=== PATIENT | female | born 1940 | race Caucasian/White ===

== ENCOUNTER → 2019-03-07 | Outpatient (CLI) | payer MEDICARE, OTHER, MEDICAID ==
[2014-12-21 15:00] VITALS: BP 132/81
[~2019-03-07] MED LIST: ALBU2.5V8 IH; ASPI-482 PO; CALC300T5 PO; CALC500T54 PO; CITA40TA12 PO; CLOP75TA57 PO; LIPITOR80 MG PO; LOSA50TA86 PO; METO-239 PO; NICO1PAT25 TD; NITR0.4T24 SL; PRED50TA PO; RANI150C PO; [UNRECOGNIZED DRUG - OTHER]; antidepressant; blood pressure med
--- NOTE | 2019-03-07 16:22 | RAD ---
CT of the chest without contrast 03/07/2019 INDICATION: COPD COMPARISON STUDY: CT angiography chest December 21, 2014 TECHNIQUE: Multidetector CT imaging of the chest performed without contrast. FINDINGS: Heart size is normal. No pericardial effusion is seen. Extensive coronary calcification noted. There is a moderate to large hiatal hernia. Scattered small mediastinal lymph nodes are similar to comparison study. Diffuse emphysematous changes are similar to comparison study. No pneumothorax, pleural effusion, or acute appearing infiltrate is seen. Known pulmonary masses are identified. Upper abdomen demonstrates no acute abnormalities. No acute osseous changes are appreciated. IMPRESSION: 1. Changes of COPD 2. Moderate to large hiatal hernia 3. No evidence of acute pulmonary process or acute change from prior study CT DOSING PQRS STATEMENT: One or more of the following individualized dose reduction techniques were utilized for this examination: 1. Automated exposure control 2. Adjustment of the mA and/or kV according to patient size 3. Use of iterative reconstruction technique Electronically signed by: Bakari Birmingham MD (03/07/2019 4:19 PM) [facility]
== END | disposition home or self-care (01) ==
LOC: CT 10:41
PROVIDERS: ATTEND Internal Medicine Pulmonary Disease
DX: J43.9 Emphysema, unspecified (principal); R91.8 Other nonspecific abnormal finding of lung field; K44.9 Diaphragmatic hernia without obstruction or gangrene; I25.10 Atherosclerotic heart disease of native coronary artery without angina pectoris
CPT/HCPCS: 71250

== ENCOUNTER → 2019-06-12 | Outpatient (CLI) | payer MEDICARE, OTHER, MEDICAID ==
[2014-12-21 15:00] VITALS: BP 132/81
--- NOTE | 2019-06-12 13:00 | RAD ---
MR#: [id number] Date of Study: 06/12/2019 Ordering Physician: MAGUE TSE, Referring Physician: MAGUE TSE, Tech: Leah Gonzalez RVT,MS APPROVED REPORT Patient Location: OUT-PATIENT Indications Claudication: PAD On the right normal triphasic waveforms are noted from the common femoral artery to the popliteal seg ment. At the level of the popliteal artery below the knee velocities are slightly diminished suggesti ve of moderate disease. There is three-vessel runoff below the knee. On the left probable moderate stenosis involving the common femoral artery with normal triphasic wave forms to the popliteal artery. Again there are lower than expected velocities below the knee but most ly triphasic and biphasic waveforms without any critical stenosis. Risk Factors Hypertension Smoking VELOCITY AND DOPPLER WAVEFORM ANALYSIS RIGHT cm/secWaveformSeverity LEFT cm/secWaveform Severity pCFA 133.3TriphasicpCFA 193.2Triphasic Prof Fem Art. 90.0TriphasicProf Fem Art. 56.0Triphasic Fem Art Prox. 66.8TriphasicFem Art Prox. 68.9Triphasic Fem Art Mid. 97.6TriphasicFem Art Mid. 79.2Triphasic Fem Art Dist. 53.1TriphasicFem Art Dist. 37.6Triphasic Pop Art(Fossa) 31.5TriphasicPop Art(AK) 36.2Triphasic THREAD DRESSER Prox. 28.6BiphasicPTA Prox. 38.8Triphasic THREAD DRESSER Dist. 34.0BiphasicPTA Dist. 41.6Biphasic Per Art Prox. 47.0TriphasicPer Art Prox. 43.4Biphasic MORGAN Prox. 54.2TriphasicATA Prox. 70.5Biphasic DPA 29BiphasicDPA 53Biphasic Critical Notification Critical Value: No <Conclusion> 1. Probable moderate diffuse disease below the knee but otherwise no critical stenosis is identified. Signed by : Mague Tse, Electronically Approved : 06/12/2019 13:00:03
--- NOTE | 2019-06-12 13:06 | RAD ---
MR#: [id number] Date of Study: 06/12/2019 Ordering Physician: MAGUE TSE, Referring Physician: MAGUE TSE, Tech: Leah Gonzalez RVT,[facility] APPROVED REPORT Patient Location: OUT-PATIENT Laterality:Bilateral Indications Dizziness and Vertigo Grayscale images are notable for bilateral carotid bulb plaques. Based on spectral waveforms, color D oppler and velocities no significant stenosis is noted in the bilateral internal and external carotid vessels. Overall 0 to less than 50% stenosis based on velocity criteria. Bilateral vertebral velocit ies are antegrade. Normal ICA to CCA ratios bilaterally. Risk Factors Hypertension: PAD Smoking Doppler Spectral Velocity Analysis Right Left pCCA 81/20 cm/spCCA 68/21 cm/s mCCA 73/19 cm/smCCA 75/23 cm/s dCCA 49/15 cm/sdCCA 60/20 cm/s Bulb 43/13 cm/sBulb ECA 89/24 cm/sECA 108/22 cm/s pICA 55/16 cm/spICA 58/23 cm/s Chapo 67/24 cm/smICA 52/20 cm/s dICA 53/21 cm/sdICA 72/26 cm/s Vert. 33/10 cm/sVert. 45/16 cm/s ICA/CCA 0.83ICA/CCA 1.06 Critical Notification Critical Value: No <Conclusion> 1. No significant carotid occlusive disease bilaterally. Signed by : Mague Tse, Electronically Approved : 06/12/2019 13:05:36
== END | disposition home or self-care (01) ==
LOC: US 08:44
PROVIDERS: ATTEND Internal Medicine Cardiovascular Disease
DX: I73.9 Peripheral vascular disease, unspecified (principal); I10 Essential (primary) hypertension
CPT/HCPCS: 93880; 93925

== ENCOUNTER → 2020-01-23 | Outpatient (CLI) | payer MEDICARE, OTHER, MEDICAID ==
[2014-12-21 15:00] VITALS: BP 132/81
--- NOTE | 2020-01-23 10:21 | CARD ---
MR#: [id number] Date of Study: 01/23/2020 Ordering Physician: MAGUE SINGH, Referring Physician: MAGUE SINGH, Tech: Joi Apodaca APPROVED REPORT EXAM: Two-dimensional and M-mode echocardiogram with Doppler and color Doppler. Other Information Quality : Average INDICATION Hypertension/HCVD 2D DIMENSIONS RVDd2.2 (2.9-3.5cm)Left Atrium(2D)2.3 (1.6-4.0cm) IVSd1.0 (0.7-1.1cm)Aortic Root(2D)3.1 (2.0-3.7cm) LVDd4.2 (3.9-5.9cm)LVOT Diameter1.9 (1.8-2.4cm) PWd0.8 (0.7-1.1cm)LVDs3.3 (2.5-4.0cm) FS (%) 21.7 %SV34.6 ml LVEF(%)44.3 (>50%) Aortic Valve AoV Peak Rickey.151.0cm/sAoV VTI29.5cm AO Peak GR.9.1mmHgLVOT Peak Rickey.121.8cm/s LVOT VTI 22.73cmAO Mean GR.4mmHg PINKY (VMAX)2.73xq8BTQ (VTI)2.24cm2 Mitral Valve MV E Yugnsjrx02.2cm/sMV E Peak Gr.3mmHg MV DECEL TIGH758qgPB A Qnmrybna05.8cm/s E/A Ratio0.8 Pulmonary Valve PV Peak Jpbfrukp13.6cm/sPV Peak Grad.3mmHg Tricuspid Valve TR P. Hbhotagz691yr/sRAP YVHGZCYV0rjIl TR Peak Gr.23ehDbKMIQ73bxOd Pulmonary Vein S1 Wdmtfzhn29.7cm/sD2 Pihirohx01.2cm/s LEFT VENTRICLE The left ventricle is normal size. There is normal left ventricular wall thickness. The left ventricu lar systolic function is normal. The Ejection Fraction is 55-60%. There is normal LV segmental wall m otion. Transmitral Doppler flow pattern is Grade I-abnormal relaxation pattern. RIGHT VENTRICLE The right ventricle is normal size. There is normal right ventricular wall thickness. The right ventr icular systolic function is normal. ATRIA The left atrium size is normal. The right atrium size is normal. The interatrial septum is intact wit h no evidence for an atrial septal defect or patent foramen ovale as noted on 2-D or Doppler imaging. AORTIC VALVE The aortic valve is normal in structure and function. Doppler and Color Flow revealed no significant aortic regurgitation. There is no significant aortic valvular stenosis. MITRAL VALVE The mitral valve is normal in structure and function. There is no evidence of mitral valve prolapse. There is no mitral valve stenosis. Doppler and Color-flow revealed trace mitral regurgitation. TRICUSPID VALVE The tricuspid valve is normal in structure and function. Doppler and Color Flow revealed trace to mil d tricuspid regurgitation with an estimated PAP of 36 mmHg. There is no tricuspid valve stenosis. PULMONIC VALVE The pulmonic valve is not well visualized. Doppler and Color Flow revealed no pulmonic valvular regur gitation. GREAT VESSELS The aortic root is normal in size. The ascending aorta is Mildly dilated. The IVC is normal in size a nd collapses >50% with inspiration. PERICARDIAL EFFUSION There is no evidence of significant pericardial effusion. Critical Notification Critical Value: No <Conclusion> The left ventricular systolic function is normal. The Ejection Fraction is 55-60%. There is normal LV segmental wall motion. Transmitral Doppler flow pattern is Grade I-abnormal relaxation pattern. Trace mitral regurgitation. Trace to mild tricuspid regurgitation with an estimated PAP of 36 mmHg. There is no evidence of significant pericardial effusion. Signed by : Bimal Haas, Electronically Approved : 01/23/2020 10:21:16
== END | disposition home or self-care (01) ==
LOC: ECHO 07:54
PROVIDERS: ATTEND Internal Medicine Cardiovascular Disease
DX: I36.1 Nonrheumatic tricuspid (valve) insufficiency (principal); I10 Essential (primary) hypertension
CPT/HCPCS: 93306

== ENCOUNTER → 2020-11-06 | Day surgery (SDC) | payer MEDICARE, OTHER, MEDICAID ==
[~2020-11-06] MED LIST changes: +ACETAMINOPHEN 500 MG TABLET PO PRN; +AMOX1TAB61 PO; +ASPI-630 PO; +BALANCED SALT IRRIG SOLN NO.2 500 ML IO ONE; +BENZONATATE 100 MG CAPSULE. PO PRN; +BRIMONIDINE 0.2% OPHTH SOLUTION 5ML BOTTLE. OS ONE; +CALC-157 PO; +CALC667C6 PO; +CEFUROXIME OPHTH 4 MG/0.4 ML SYRINGE. OS ONE; +CHONDROIT-SOD-HYALURONATE KIT. OS ONE; +CITA40TA5 PO; +FERR-36 PO; +FERR325T14 PO; +IBUPROFEN 200 MG TABLET PO PRN; +IPRATRPIUM/ALBUTEROL 0.5/2.5MG 3 ML NEBU. NEB PRN; +IV RINGERS SOLUTION,LACTATED 1,000 ML IV SCH; +LIDO/EPI IN BSS OPHTH 2.7 ML SYRINGE. OS ONE; +LIDOCAINE 2% JELLY 6ML IN APPLICATOR. ONE; +MIDAZOLAM HCL PF 2 MG/2 ML VIAL. IV ONE; +MIDAZOLAM HCL PF 2 MG/2 ML VIAL. ONE; +OMEP20CA16 PO; +PHENYLEPHRINE 10% OPHTH SOLUTION 5ML BOTTLE. OS PRN; +POVIDONE-IODINE 5% OPHTH SOLUTION 30ML BOTTLE. ONE; +POVIDONE-IODINE 5% OPHTH SOLUTION 30ML BOTTLE. OS ONE; +POVIDONE-IODINE 5% OPHTH SOLUTION 30ML BOTTLE. OS PRN; +PROPARACAINE 0.5% OPHTH SOLUTION 15ML BOTTLE. OS ONE; +PROPARACAINE 0.5% OPHTH SOLUTION 15ML BOTTLE. OS PRN; +RANI150T2 PO; +VIT1TABL32 PO; +prednisoLONE ACETATE 1% OPHTH SUSPENSION 5ML BOTTLE. OS ONE; +symbicort INH
[2020-11-06] MEDS: TROPICAMIDE 1% OPHTH SOLUTION 15ML BOTTLE. OS SCH ×3 (07:03→07:11)
[2020-11-06] MEDS: KETOROLAC TROMETHAMINE 0.5% OPHTH SOLUTION BOTTLE. OS SCH ×2 (07:03→07:07)
[2020-11-06] MEDS: PHENYLEPHRINE 2.5% OPHTH SOLUTION 2ML BOTTLE. OS SCH ×3 (07:03→07:10)
[2020-11-06] MEDS: TOBRAMYCIN 0.3% OPHTH SOLUTION 5ML BOTTLE. OS SCH ×2 (07:03→07:07)
--- NOTE | 2020-11-06 07:50 | PDOC4 ---
SURGEON: Grcae More MD Date of Procedure: 11/06/20 PREOP Diagnosis Visually significant cataract: Left Eye OS POSTOP Diagnosis Same PROCEDURE: Phaco w/ posterior chamber IOL: Left Eye OS ANESTHESIA Deep forniceal periocular 2% Lidocaine jelly Carmelita/retro bulbar block with 2% Lidocaine with 0.5% Marcaine DESCRIPTION OF PROCEDURE The risks, benefits, and alternatives were discussed with the patient who elected to proceed. Informed consent was obtained in writing and placed in the chart After anesthetizing the eye topically, the patient was taken to the operating room, and the operative eye was prepped and draped in the usual sterile fashion for ocular surgery. A wire lid speculum was placed. A 1-mm clear corneal paracentesis incision was created with the side-port blade at a position three o'clock hours clockwise from the temporal cornea. Then, 1% non-preserved Lidocaine with epinephrine was injected into the anterior chamber followed by viscoelastic. Cotton-tipped applicators were used to stabilize the globe, and a 2.4 mm keratome was used to create a self-sealing incision in clear cornea at the temporal limbus. The Utrata forceps were used to create a continuous curvilinear capsulorrhexis. Balanced saline solution was injected via cannula beneath the capsulorrhexis edge to hydrodissect the lens nucleus and cortex from the lens capsule. The phacoemulsification handpiece and a chopping instrument were then used to remove the lens nucleus. The remaining epinuclear material and cortex were removed with the irrigation/aspiration handpiece. Vis coelastic was used to re-inflate the lens capsule, and the intraocular lens was injected directly into the capsular bag. The corneal wound edges were hydrated with balanced salt solution on a cannula and the irrigation/aspiration handpiece was used to extract the remaining viscoelastic. Cefuroxime 0.1mg/ml / Vigamox 0.5% was injected into the anterior chamber intracamerally. The wounds were inspected and found to be watertight at an appropriate intraocular pressure. Topical antibiotic drops were placed on the corneal surface. LRI: No If Yes, Number [] [place] [] Length [] degrees Depth [] microns Incision [place]: 180 Toric Lens [place] [] Patch/shield with Maxitrol/Tobradex/Erythromycin ointment: Yes No Co-managed patients/postop examination stable for co-management with referring doctor. EBL EBL: None SPECIMANS COLLECTED Specimens Collected: None GRACE MORE MD Nov 06, 2020 07:50
[2020-11-06 08:00] VITALS: BP 103/38
== END | disposition home or self-care (01) ==
LOC: SURG 06:29
PROVIDERS: ATTEND Ophthalmology
DX: H25.12 Age-related nuclear cataract, left eye (principal); D64.9 Anemia, unspecified; M19.90 Unspecified osteoarthritis, unspecified site; I10 Essential (primary) hypertension; F32.9 Major depressive disorder, single episode, unspecified; K21.9 Gastro-esophageal reflux disease without esophagitis; E78.00 Pure hypercholesterolemia, unspecified; I25.10 Atherosclerotic heart disease of native coronary artery without angina pectoris; Z88.5 Allergy status to narcotic agent; Z88.8 Allergy status to other drugs, medicaments and biological substances; Z79.899 Other long term (current) drug therapy; Z79.82 Long term (current) use of aspirin; Z95.5 Presence of coronary angioplasty implant and graft; Z96.651 Presence of right artificial knee joint; Z83.3 Family history of diabetes mellitus; Z87.891 Personal history of nicotine dependence; Z82.49 Family history of ischemic heart disease and other diseases of the circulatory system
CPT/HCPCS: 66984; J2250; V2632

== ENCOUNTER → 2020-12-09 | Outpatient (CLI) | payer MEDICARE, OTHER, MEDICAID ==
[~2020-12-09] MED LIST changes: -ACETAMINOPHEN 500 MG TABLET PO PRN; -BALANCED SALT IRRIG SOLN NO.2 500 ML IO ONE; -BENZONATATE 100 MG CAPSULE. PO PRN; -BRIMONIDINE 0.2% OPHTH SOLUTION 5ML BOTTLE. OS ONE; -CEFUROXIME OPHTH 4 MG/0.4 ML SYRINGE. OS ONE; -CHONDROIT-SOD-HYALURONATE KIT. OS ONE; -IBUPROFEN 200 MG TABLET PO PRN; -IPRATRPIUM/ALBUTEROL 0.5/2.5MG 3 ML NEBU. NEB PRN; -IV RINGERS SOLUTION,LACTATED 1,000 ML IV SCH; -LIDO/EPI IN BSS OPHTH 2.7 ML SYRINGE. OS ONE; -LIDOCAINE 2% JELLY 6ML IN APPLICATOR. ONE; -MIDAZOLAM HCL PF 2 MG/2 ML VIAL. IV ONE; -MIDAZOLAM HCL PF 2 MG/2 ML VIAL. ONE; -PHENYLEPHRINE 10% OPHTH SOLUTION 5ML BOTTLE. OS PRN; -POVIDONE-IODINE 5% OPHTH SOLUTION 30ML BOTTLE. ONE; -POVIDONE-IODINE 5% OPHTH SOLUTION 30ML BOTTLE. OS ONE; -POVIDONE-IODINE 5% OPHTH SOLUTION 30ML BOTTLE. OS PRN; -PROPARACAINE 0.5% OPHTH SOLUTION 15ML BOTTLE. OS ONE; -PROPARACAINE 0.5% OPHTH SOLUTION 15ML BOTTLE. OS PRN; -prednisoLONE ACETATE 1% OPHTH SUSPENSION 5ML BOTTLE. OS ONE
[2020-12-12 08:53] VITALS: BP 103/67
== END ==
LOC: LAB 18:08
PROVIDERS: ATTEND Ophthalmology
DX: Z01.812 Encounter for preprocedural laboratory examination (principal); H25.11 Age-related nuclear cataract, right eye; Z20.822 Contact with and (suspected) exposure to COVID-19
CPT/HCPCS: C9803; U0003

== ENCOUNTER → 2020-12-12 | Day surgery (SDC) | payer MEDICARE, OTHER, MEDICAID ==
[~2020-12-12] MED LIST changes: +ACETAMINOPHEN 500 MG TABLET PO PRN; +BALANCED SALT IRRIG SOLN NO.2 500 ML IO ONE; +BENZONATATE 100 MG CAPSULE. PO PRN; +BRIMONIDINE 0.2% OPHTH SOLUTION 5ML BOTTLE. OD ONE; +CEFUROXIME OPHTH 4 MG/0.4 ML SYRINGE. OD ONE; +CHONDROIT-SOD-HYALURONATE KIT. OD ONE; +IBUPROFEN 200 MG TABLET PO PRN; +IPRATRPIUM/ALBUTEROL 0.5/2.5MG 3 ML NEBU. NEB PRN; +IV RINGERS SOLUTION,LACTATED 1,000 ML IV SCH; +LIDO/EPI IN BSS OPHTH 2.7 ML SYRINGE. OD ONE; +LIDOCAINE 2% JELLY 6ML IN APPLICATOR. ONE; +MIDAZOLAM HCL PF 2 MG/2 ML VIAL. IV ONE; +PHENYLEPHRINE 10% OPHTH SOLUTION 5ML BOTTLE. OD PRN; +POVIDONE-IODINE 5% OPHTH SOLUTION 30ML BOTTLE. OD ONE; +POVIDONE-IODINE 5% OPHTH SOLUTION 30ML BOTTLE. OD PRN; +POVIDONE-IODINE 5% OPHTH SOLUTION 30ML BOTTLE. ONE; +PROPARACAINE 0.5% OPHTH SOLUTION 15ML BOTTLE. OD ONE; +PROPARACAINE 0.5% OPHTH SOLUTION 15ML BOTTLE. OD PRN; +prednisoLONE ACETATE 1% OPHTH SUSPENSION 5ML BOTTLE. OD ONE
[2020-12-12] MEDS: TROPICAMIDE 1% OPHTH SOLUTION 15ML BOTTLE. OD SCH ×3 (07:17→07:30)
[2020-12-12] MEDS: TOBRAMYCIN 0.3% OPHTH SOLUTION 5ML BOTTLE. OD SCH ×2 (07:18→07:24)
[2020-12-12] MEDS: PHENYLEPHRINE 2.5% OPHTH SOLUTION 2ML BOTTLE. OD SCH ×3 (07:18→07:30)
[2020-12-12] MEDS: KETOROLAC TROMETHAMINE 0.5% OPHTH SOLUTION BOTTLE. OD SCH ×2 (07:18→07:24)
--- NOTE | 2020-12-12 08:45 | PDOC4 ---
SURGEON: Grace More MD Date of Procedure: 12/12/20 PREOP Diagnosis Visually significant cataract: Right Eye OD POSTOP Diagnosis Same PROCEDURE: Phaco w/ posterior chamber IOL: Right Eye OD ANESTHESIA Deep forniceal periocular 2% Lidocaine jelly Carmelita/retro bulbar block with 2% Lidocaine with 0.5% Marcaine DESCRIPTION OF PROCEDURE The risks, benefits, and alternatives were discussed with the patient who elected to proceed. Informed consent was obtained in writing and placed in the chart After anesthetizing the eye topically, the patient was taken to the operating room, and the operative eye was prepped and draped in the usual sterile fashion for ocular surgery. A wire lid speculum was placed. A 1-mm clear corneal paracentesis incision was created with the side-port blade at a position three o'clock hours clockwise from the temporal cornea. Then, 1% non-preserved Lidocaine with epinephrine was injected into the anterior chamber followed by viscoelastic. Cotton-tipped applicators were used to stabilize the globe, and a 2.4 mm keratome was used to create a self-sealing incision in clear cornea at the temporal limbus. The Utrata forceps were used to create a continuous curvilinear capsulorrhexis. Balanced saline solution was injected via cannula beneath the capsulorrhexis edge to hydrodissect the lens nucleus and cortex from the lens capsule. The phacoemulsification handpiece and a chopping instrument were then used to remove the lens nucleus. The remaining epinuclear material and cortex were removed with the irrigation/aspiration handpiece. V iscoelastic was used to re-inflate the lens capsule, and the intraocular lens was injected directly into the capsular bag. The corneal wound edges were hydrated with balanced salt solution on a cannula and the irrigation/aspiration handpiece was used to extract the remaining viscoelastic. Cefuroxime 0.1mg/ml / Vigamox 0.5% was injected into the anterior chamber intracamerally. The wounds were inspected and found to be watertight at an appropriate intraocular pressure. Topical antibiotic drops were placed on the corneal surface. LRI: No If Yes, Number [] [place] [] Length [] degrees Depth [] microns Incision [place]: 180 Toric Lens [place] [] Patch/shield with Maxitrol/Tobradex/Erythromycin ointment: Yes No Co-managed patients/postop examination stable for co-management with referring doctor. EBL EBL: None SPECIMANS COLLECTED Specimens Collected: None GRACE MORE MD Dec 12, 2020 08:45
[2020-12-12 08:53] VITALS: BP 103/67
== END | disposition home or self-care (01) ==
LOC: SURG 06:52
PROVIDERS: ATTEND Ophthalmology
DX: H25.11 Age-related nuclear cataract, right eye (principal); E78.00 Pure hypercholesterolemia, unspecified; I25.2 Old myocardial infarction; K21.9 Gastro-esophageal reflux disease without esophagitis; F32.9 Major depressive disorder, single episode, unspecified; M19.90 Unspecified osteoarthritis, unspecified site; Z98.890 Other specified postprocedural states; Z96.651 Presence of right artificial knee joint; Z79.899 Other long term (current) drug therapy; Z20.822 Contact with and (suspected) exposure to COVID-19
CPT/HCPCS: 66984; C9803; J2250; U0003; V2632

== ENCOUNTER 2021-03-17 12:32 | Emergency (ER) | payer MEDICARE, OTHER, MEDICAID ==
[2021-03-17] VITALS (7 sets, daily range): BP systolic 106–126; BP diastolic 65–71
[~2021-03-17] VITALS: Ht 149.9 cm; Wt 44.6 kg
[~2021-03-17 12:32] MED LIST changes: -ACETAMINOPHEN 500 MG TABLET PO PRN; -BALANCED SALT IRRIG SOLN NO.2 500 ML IO ONE; -BENZONATATE 100 MG CAPSULE. PO PRN; -BRIMONIDINE 0.2% OPHTH SOLUTION 5ML BOTTLE. OD ONE; -CEFUROXIME OPHTH 4 MG/0.4 ML SYRINGE. OD ONE; -CHONDROIT-SOD-HYALURONATE KIT. OD ONE; -CITA40TA5 PO; +CITA40TA6 PO; -IBUPROFEN 200 MG TABLET PO PRN; -IPRATRPIUM/ALBUTEROL 0.5/2.5MG 3 ML NEBU. NEB PRN; -IV RINGERS SOLUTION,LACTATED 1,000 ML IV SCH; -LIDO/EPI IN BSS OPHTH 2.7 ML SYRINGE. OD ONE; -LIDOCAINE 2% JELLY 6ML IN APPLICATOR. ONE; -MIDAZOLAM HCL PF 2 MG/2 ML VIAL. IV ONE; -PHENYLEPHRINE 10% OPHTH SOLUTION 5ML BOTTLE. OD PRN; -POVIDONE-IODINE 5% OPHTH SOLUTION 30ML BOTTLE. OD ONE; -POVIDONE-IODINE 5% OPHTH SOLUTION 30ML BOTTLE. OD PRN; -POVIDONE-IODINE 5% OPHTH SOLUTION 30ML BOTTLE. ONE; -PROPARACAINE 0.5% OPHTH SOLUTION 15ML BOTTLE. OD ONE; -PROPARACAINE 0.5% OPHTH SOLUTION 15ML BOTTLE. OD PRN; -prednisoLONE ACETATE 1% OPHTH SUSPENSION 5ML BOTTLE. OD ONE
[2021-03-17 13:31] LABS: BASO # 0.1 x10^3/uL (0.0-0.2); BASO % 1 % (0-3); EOS # 0.2 x10^3/uL (0.0-0.7); EOS % 2 % (0-3); HEMATOCRIT 20.9 % (36.0-47.0); LYMPH # 0.7 x10^3/uL (1.0-4.8); LYMPH % 7 % (24-48); MEAN CORPUSCULAR HEMOGLOBIN 25 pg (25-35); MEAN CORPUSCULAR HGB CONC 31 g/dL (31-37); MEAN CORPUSCULAR VOLUME 81 fL (79-100); MONO # 0.7 x10^3/uL (0.0-1.1); MONO % 8 % (0-9); NEUT # 7.7 x10^3uL (1.8-7.7); NEUT % 82 % (31-73); PLATELET COUNT 631 x10^3/uL (140-400); RED BLOOD COUNT 2.59 x10^6/uL (3.50-5.40); RED CELL DISTRIBUTION WIDTH 16.1 % (11.5-14.5); WHITE BLOOD COUNT 9.4 x10^3/uL (4.0-11.0)
[2021-03-17 13:34] LABS: HEMOGLOBIN 6.5 g/dL (12.0-15.5)
--- NOTE | 2021-03-17 13:38 | PHYS DOC ---
Past History Past Medical History: Arthritis, GERD, Hypotension, [place] Past Surgical History: Angioplasty, Appendectomy, Other Additional Past Surgical Histo: CARDIAC STENT PLACED 01/05/2021 Alcohol Use: None Drug Use: None Adult General Chief Complaint Chief Complaint: NEAR SYCOPE HPI HPI Patient is a 80-year-old female presenting via EMS for near syncopal episode. Patient was on the toilet at local [facility] having a bowel movement when she BPN experiencing near syncopal symptoms while bearing down. These were transient and self improved in less than a minute. She is able to ambulate and use her walker where she notified people with her who got concerned and subsequently called EMS. On arrival, patient was found to be hypotensive otherwise hemodynamically stable with GCS 15. Despite patient being asymptomatic, decision was made to transport patient to our facility. On arrival, patient states she is at baseline health and remains asymptomatic. Reports only major change in health recently was a heart attack that hospitalized her 2 months prior. Reports she had unknown amount of stents placed by Dr. Tse at [facility] and is was started on Brilinta to complement pre viously taken aspirin. Does admit she has had dark stools but this is chronic in nature due to ongoing iron supplementation. She has never had a blood transfusion before. No obvious bleeding, states recent colonoscopy was 2 years ago and unremarkable, no family history or personal history of colon cancer Review of Systems Review of Systems Fourteen body systems of review of systems have been reviewed. See HPI for pertinent positives and negative responses, other bermudez all other systems are negative, non-pertinent or non-contributory Allergies Allergies Allergies Coded Allergies Type Severity Reaction Last Updated Verified amlodipine Allergy Intermediate 03/17/21 No morphine Allergy Intermediate vomiting 03/17/21 Yes varenicline Allergy Intermediate 03/17/21 No Physical Exam Physical Exam General: Appears well, non toxic, and comfortable Skin: Warm, dry. Normal for ethnicity. HEENT: Atraumatic. PERRLA. Moist mucous membranes. Neck: Trachea midline. Normal ROM. Respiratory: Normal WOB. CTAB w/o w/r/r. No tachypnea. Cardiovascular: Regular rate and rhythm. Normal peripheral perfusion. No edema. Abdomen: Soft. Non tender. No distension. : Rectal exam performed with dark tarry stool present on bilateral butt cheeks, anal sphincter intact without any visual or palpable abnormalities, no palpable abnormalities within rectal vault Back: Normal ROM. Musculoskeletal: No swelling or deformity. Neuro: Alert and oriented x 4. MAEE. GCS 15. Normal FNF. Negative pronator drift. Normal heel to gale. Normal Ruy. CN II-XII intact. Normal strength and sensation. Normal speech. Psych: Normal affect and mood. Current Patient Data Vital Signs Vital Signs Date Time Temp Pulse Resp B/P (MAP) Pulse Ox O2 Delivery O2 Flow Rate FiO2 03/17/21 12:34 97.6 90 18 87/62 (70) 99 Room Air Lab Results Laboratory Tests Test 03/17/21 13:12 03/17/21 13:16 03/17/21 13:38 Glucose (Fingerstick) 93 mg/dL White Blood Count 9.4 x10^3/uL Red Blood Count 2.59 x10^6/uL Hemoglobin 6.5 g/dL Hematocrit 20.9 % Mean Corpuscular Volume 81 fL Mean Corpuscular Hemoglobin 25 pg Mean Corpuscular Hemoglobin Concent 31 g/dL Red Cell Distribution Width 16.1 % Platelet Count 631 x10^3/uL Neutrophils (%) (Auto) 82 % Lymphocytes (%) (Auto) 7 % Monocytes (%) (Auto) 8 % Eosinophils (%) (Auto) 2 % Basophils (%) (Auto) 1 % Neutrophils # (Auto) 7.7 x10^3uL Lymphocytes # (Auto) 0.7 x10^3/uL Monocytes # (Auto) 0.7 x10^3/uL Eosinophils # (Auto) 0.2 x10^3/uL Basophils # (Auto) 0.1 x10^3/uL Sodium Level 137 mmol/L Potassium Level 4.2 mmol/L Chloride Level 103 mmol/L Carbon Dioxide Level 24 mmol/L Anion Gap 10 Blood Urea Nitrogen 20 mg/dL Creatinine 1.4 mg/dL Estimated GFR (Cockcroft-Gault) 36.4 Glucose Level 104 mg/dL Calcium Level 8.5 mg/dL Troponin I High Sensitivity 6 ng/L Stool Occult Blood Positive EKG EKG EKG ordered and interpreted by myself at 1243 hrs. is sinus rhythm 93 bpm, prolonged QTC at 488 otherwise unremarkable intervals, left axis deviation, no acute ischemic findings, no STEMI Radiology/Procedures Radiology/Procedures XR CHEST 1V INDICATION: near syncope / Spl. Instructions: / History: . COMPARISON STUDY: CT chest 03/07/2019. FINDINGS: Lungs: Normal lung volume. No focal airspace disease. Normal pulmonary vasculature. Pleura: No pleural effusion or pneumothorax. Heart and Mediastinum: Normal cardiac size. Tortuous thoracic aorta. Moderate- sized hiatal hernia. IMPRESSION: No acute cardiopulmonary process. Electronically signed by: Yoandy Chou MD (03/17/2021 1:57 PM) [facility] Heart Score C/O Chest Pain: No HEART Score for Chest Pain: HEART Score for Chest Pain Response (Comments) Value History Slighlty/Non-Suspicious 0 ECG Nonspecific Repolarizatio 1 Age > 65 2 Risk Factors >3 Risk Factors or Hx CAD 2 Troponin < Normal Limit 0 Total 5 Risk Factors: Risk Factors: DM, Current or recent (<one month) smoker, HTN, HLP, family history of CAD, obesity. Risk Scores: Risk Factors: DM, Current or recent (<one month) smoker, HTN, HLP, family history of CAD, obesity. Course & Med Decision Making Course & Med Decision Making Airway patent, breathing unlabored, IV access and vitals obtained concerning for hypotension only. 500 mL IV LR administered with improvement HPI physical exam and comprehensive ER work-up concerning for acute on chronic anemia with positive Hemoccult in a patient who recently started Brilinta on top of typical aspirin use 2 months ago. This likely precipitated patient's presyncopal symptoms I discussed all findings at length, patient agreeable to blood transfusion at this time. She has never had this in the past. Risks and benefits reviewed with eventual consent obtained. 1 unit packed red blood cells started in ER I contacted hospitalist at [facility] and discussed need for hospital transfer for admission status post anemia requiring transfusion and GI bleed and high risk patient, patient accepted under Dr. Kamara Notified that hospital was at capacity. I discussed potential transfer to outlying/other facilities but patient deferred, she was willing to wait if she wants to be seen by her GI and visual merchandising specialist both of which are housed at [facility] 1 unit packed red blood cells transfused successfully and repeat CBC obtained greater than 1 hour after transfusion with results pending at time of shift change. Comprehensive signout given to oncoming physician, please defer to future documentation regarding care of patient in ER setting ///////////////// I reassumed care of patient during daytime shift 03/18/2021. Patient remained stable overnight with any obvious abnormalities. Recheck hemoglobin after transfusion of 1 unit of red blood cells greater than 7. I reordered labs today which were unremarkable Room finally made available at [facility]. Patient had unremarkable day throughout my ER shift without any issues such as ongoing bleeding and remained hemodynamically stable. Patient transported to [facility] via EMS Dragon Disclaimer Dragon Disclaimer This electronic medical record was generated, in whole or in part, using a voice recognition dictation system. Departure Departure: Impression: Primary Impression: Acute on chronic anemia Additional Impressions: Antiplatelet or antithrombotic long-term use Near syncope Disposition: 02 SHORT TERM HOSPITAL ([facility]) Admitting Physician: Other (dr kamara) Condition: STABLE Referrals: ALINA POE (PCP) Problem Qualifiers JAY RUFFIN DO Mar 17, 2021 13:38
[2021-03-17 13:44] LABS: CALCIUM 8.5 mg/dL (8.5-10.1); CREATININE 1.4 mg/dL (0.6-1.0); GFR 36.4; POTASSIUM 4.2 mmol/L (3.5-5.1)
--- NOTE | 2021-03-17 13:59 | RAD ---
XR CHEST 1V INDICATION: near syncope / Spl. Instructions: / History: . COMPARISON STUDY: CT chest 03/07/2019. FINDINGS: Lungs: Normal lung volume. No focal airspace disease. Normal pulmonary vasculature. Pleura: No pleural effusion or pneumothorax. Heart and Mediastinum: Normal cardiac size. Tortuous thoracic aorta. Moderate-sized hiatal hernia. IMPRESSION: No acute cardiopulmonary process. Electronically signed by: Yoandy Chou MD (03/17/2021 1:57 PM) [facility]
[2021-03-17 14:11] LABS: FECAL OB PT POSITIVE (NEG)
--- NOTE | 2021-03-17 18:58 | EKG ---
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
[2021-03-17 19:11] LABS: HEMATOCRIT 27.4 % (36.0-47.0); RED BLOOD COUNT 3.28 x10^6/uL (3.50-5.40); RED CELL DISTRIBUTION WIDTH 16.8 % (11.5-14.5); WHITE BLOOD COUNT 9.8 x10^3/uL (4.0-11.0)
[2021-03-17 19:12] LABS: HEMOGLOBIN 8.9 g/dL (12.0-15.5)
[2021-03-17] MEDS ORDERED: CITALOPRAM 20 MG TABLET. PO ONE (23:30)
[2021-03-18 06:56] LABS: BASO # 0.1 x10^3/uL (0.0-0.2); BASO % 1 % (0-3); EOS # 0.4 x10^3/uL (0.0-0.7); EOS % 4 % (0-3); HEMATOCRIT 26.7 % (36.0-47.0); HEMOGLOBIN 8.6 g/dL (12.0-15.5); LYMPH % 12 % (24-48); MEAN CORPUSCULAR HEMOGLOBIN 27 pg (25-35); MEAN CORPUSCULAR HGB CONC 32 g/dL (31-37); MEAN CORPUSCULAR VOLUME 82 fL (79-100); MONO # 0.9 x10^3/uL (0.0-1.1); MONO % 10 % (0-9); NEUT # 6.4 x10^3uL (1.8-7.7); NEUT % 73 % (31-73); PLATELET COUNT 557 x10^3/uL (140-400); RED BLOOD COUNT 3.23 x10^6/uL (3.50-5.40); RED CELL DISTRIBUTION WIDTH 16.5 % (11.5-14.5); WHITE BLOOD COUNT 8.7 x10^3/uL (4.0-11.0)
[2021-03-18 07:05] LABS: CALCIUM 8.2 mg/dL (8.5-10.1); CREATININE 1.2 mg/dL (0.6-1.0); GFR 43.4; POTASSIUM 4.6 mmol/L (3.5-5.1)
[2021-03-18 15:43] VITALS: BP 120/70
== END 2021-03-18 16:47 | disposition short-term general hospital (02) ==
LOC: ER 12:32
DX: D64.89 Other specified anemias (principal); R55 Syncope and collapse; M19.90 Unspecified osteoarthritis, unspecified site; K21.9 Gastro-esophageal reflux disease without esophagitis; I25.2 Old myocardial infarction; Z20.822 Contact with and (suspected) exposure to COVID-19; Z79.02 Long term (current) use of antithrombotics/antiplatelets; Z90.89 Acquired absence of other organs; Z98.61 Coronary angioplasty status; Z88.5 Allergy status to narcotic agent; Z88.8 Allergy status to other drugs, medicaments and biological substances
CPT/HCPCS: 36415; 36430; 71045; 80048; 82274; 82947; 84484; 85025; 85027; 85610; 85730; 86850; 86900; 86901; 86920; 87426; 93005; 99285; P9016; U0003

== ENCOUNTER → 2021-04-22 | Outpatient (CLI) | payer MEDICARE, OTHER, MEDICAID ==
--- NOTE | 2021-04-22 17:23 | CARD ---
MR#: [id number] Date of Study: 04/22/2021 Ordering Physician: MAGUE SINGH, Referring Physician: MAGUE SINGH, Tech: Joi Apodaca, [facility] APPROVED REPORT EXAM: Two-dimensional and M-mode echocardiogram with Doppler and color Doppler. Other Information Quality : AverageHR: 82bpm INDICATION Cardiomyopathy RISK FACTORS Hypertension Asthma 2D DIMENSIONS Left Atrium(2D)1.5 (1.6-4.0cm)IVSd1.0 (0.7-1.1cm) Aortic Root(2D)3.4 (2.0-3.7cm)LVDd4.1 (3.9-5.9cm) LVOT Diameter1.9 (1.8-2.4cm)PWd1.0 (0.7-1.1cm) LVDs2.7 (2.5-4.0cm)FS (%) 33.6 % SV47.0 mlLVEF(%)62.9 (>50%) Aortic Valve AoV Peak Rickey.140.5cm/sAoV VTI29.1cm AO Peak GR.7.9mmHgLVOT Peak Rickey.113.1cm/s LVOT VTI 23.87cmAO Mean GR.4mmHg PINKY (VMAX)2.38so8BCL (VTI)2.28cm2 Mitral Valve MV E Ithahxrp01.4cm/sMV E Peak Gr.4mmHg MV DECEL [id number] A Ltjyfcex172.1cm/s MV E Mean Gr.2mmHgE/A Ratio0.8 Pulmonary Valve PV Peak Bxhufmff72.3cm/sPV Peak Grad.2mmHg Tricuspid Valve TR P. Uzobyesn029en/sTR Peak Gr.35mmHg Pulmonary Vein S1 Eruswelj26.1cm/sD2 Rwfsdhyf54.5cm/s LEFT VENTRICLE The left ventricle is normal size. There is normal left ventricular wall thickness. The left ventricu lar systolic function is normal. The Ejection Fraction is 55-60%. There is normal LV segmental wall m otion. Transmitral Doppler flow pattern is Grade I-abnormal relaxation pattern. RIGHT VENTRICLE The right ventricle is normal size. There is normal right ventricular wall thickness. The right ventr icular systolic function is normal. ATRIA The left atrium size is normal. The right atrium size is normal. The interatrial septum is intact wit h no evidence for an atrial septal defect or patent foramen ovale as noted on 2-D or Doppler imaging. AORTIC VALVE The aortic valve is normal in structure and function. There is no significant aortic valvular stenosi s. MITRAL VALVE The mitral valve is normal in structure and function. There is no evidence of mitral valve prolapse. There is no mitral valve stenosis. Doppler and Color-flow revealed trace mitral regurgitation. TRICUSPID VALVE The tricuspid valve is normal in structure and function. Doppler and Color Flow revealed trace tricus pid regurgitation with an estimated PAP of 38 mmHg. There is no tricuspid valve stenosis. PULMONIC VALVE The pulmonary valve is normal in structure and function. Doppler and Color Flow revealed no pulmonic valvular regurgitation. GREAT VESSELS The aortic root is mildly enlarged measuring 3.4 cm. The IVC is normal in size and collapses >50% wit h inspiration. PERICARDIAL EFFUSION There is no evidence of significant pericardial effusion. Critical Notification Critical Value: No <Conclusion> The left ventricular systolic function is normal. The Ejection Fraction is 55-60%. There is normal LV segmental wall motion. Transmitral Doppler flow pattern is Grade I-abnormal relaxation pattern. Trace mitral regurgitation. Trace tricuspid regurgitation with an estimated PAP of 38 mmHg. There is no evidence of significant pericardial effusion. Signed by : Bimal Haas, Electronically Approved : 04/22/2021 17:23:17
== END ==
LOC: ECHO 13:36
PROVIDERS: ATTEND Internal Medicine Cardiovascular Disease
DX: I77.819 Aortic ectasia, unspecified site (principal); I25.5 Ischemic cardiomyopathy
CPT/HCPCS: 93306